=== PATIENT | male | born 1990 | race Caucasian/White ===

== ENCOUNTER 2016-06-09 16:04 | Emergency (ER) | payer OTHER ==
[2016-06-09] MEDS ORDERED: OXYCODONE HCL 5 MG TABLET ONE (17:11)
[2016-06-09] MEDS ORDERED: ACETAMINOPHEN 500 MG TABLET ONE (17:11)
--- NOTE | 2016-06-09 17:27 | RAD ---
FOREARM RIGHT HISTORY: Mid right forearm pain after fall. COMPARISONS: None. FINDINGS: 2 views of the right forearm were performed demonstrating intact osseous structures. There is no discrete fracture visualized. The proximal and distal joint spaces are well-maintained. No focal soft tissue abnormalities are seen. IMPRESSION: 1. Negative views of the right forearm.
[2016-06-09] MEDS ORDERED: KETOROLAC TROMETHAMINE 15 MG/ML VIAL ONE (18:31)
== END 2016-06-09 19:24 | disposition home or self-care (01) ==
LOC: ED 16:04
DX: M79.601 Pain in right arm (principal); W01.0XXA Fall on same level from slipping, tripping and stumbling without subsequent striking against object, initial encounter; Y93.H3 Activity, building and construction; Y92.89 Other specified places as the place of occurrence of the external cause; Z87.891 Personal history of nicotine dependence
CPT/HCPCS: 73090; 99283 ×2; 96372; A9270 ×2; J1885